=== PATIENT | female | born 1995 | race Caucasian/White ===

== ENCOUNTER 2018-07-16 09:31 | Emergency (ER) | payer OTHER ==
[2018-07-16 09:48] VITALS: BP 132/79
[2018-07-16] MEDS ORDERED: KETOROLAC TROMETHAMINE INJ/PF 30 MG/1 ML SDV IM ONE (10:01)
[2018-07-16] MEDS ORDERED: DICYCLOMINE HCL 20 MG TABLET PO ONE (10:02)
--- NOTE | 2018-07-16 10:26 | ER Document Report ---
ED GI/ - General Chief Complaint: Abdominal Pain Stated Complaint: ADOMINAL PAIN Time Seen by Provider: 07/16/18 10:01 Notes: Chief complaint: abdominal pain: History of complain:( obtained from----patient) 22 years old female presents today with abdominal pain for the last 3 days, not associated with any nausea vomiting diarrhea dysuria frequency or urgency. Denies any fever chills or other constitutional symptoms. Irregular bowel habit. Onset: 3 days ago Duration: Gradual Severity: Mild to moderate Quality: Crampy Context: Possible constipation Exacerbating factor and relieving factors: None REVIEW OF SYSTEMS: CONSTITUTIONAL : Denies fever, chills, or sweats. Denies recent illness. EENT: Denies eye, ear, throat, or mouth pain or symptoms. Denies nasal or sinus congestion or discharge. Denies throat, tongue, or mouth swelling or difficulty swallowing. CARDIOVASCULAR: Denies chest pain. Denies palpitations or racing or irregular heart beat. Denies ankle edema. RESPIRATORY: Denies cough, cold, or chest congestion. Denies shortness of breath, difficulty breathing, or wheezing. GASTROINTESTINAL: Denies distention. Denies nausea, vomiting, or diarrhea. Denies blood in vomitus, stools, or per rectum. Denies black, tarry stools. Denies constipation. GENITOURINARY: Denies difficulty urinating, painful urination, burning, frequency, blood in urine, or discharge. FEMALE GENITOURINARY: Denies vaginal bleeding, heavy or abnormal periods, irregular periods. Denies vaginal discharge or odor. MUSCULOSKELETAL: Denies back or neck pain or stiffness. Denies joint pain or swelling. SKIN: Denies rash, lesions or sores. HEMATOLOGIC : Denies easy bruising or bleeding. LYMPHATIC: Denies swollen, enlarged glands. NEUROLOGICAL: Denies confusion or altered mental status. Denies passing out or loss of consciousness. Denies dizziness or lightheadedness. Denies headache. Denies weakness or paralysis or loss of use of either side. Denies problems with gait or speech. Denies sensory loss, numbness, or tingling. Denies seizures. PSYCHIATRIC: Denies anxiety or stress. Denies depression, suicidal ideation, or homicidal ideation. ALL OTHER SYSTEMS REVIEWED AND NEGATIVE. PHYSICAL EXAMINATION: GENERAL: Well-appearing, well-nourished and in no acute distress. HEAD: Atraumatic, normocephalic. EYES: Pupils equal round and reactive to light, extraocular movements intact, conjunctiva are normal. ENT: Nares patent, oropharynx clear without exudates. Moist mucous membranes. NECK: Normal range of motion, supple without lymphadenopathy LUNGS: Breath sounds clear to auscultation bilaterally and equal. No wheezes rales or rhonchi. HEART: Regular rate and rhythm without murmurs ABDOMEN: Soft, tender over the right lower quadrant right upper quadrant left lower quadrant., nondistended abdomen. No guarding, no rebound. No masses appreciated. Female : deferred Musculoskeletal: Normal range of motion, no pitting or edema. No cyanosis. NEUROLOGICAL: Cranial nerves grossly intact. Normal speech, normal gait. Normal sensory, motor exams PSYCH: Normal mood, normal affect. SKIN: Warm, Dry, normal turgor, no rashes or lesions noted. Dictation was performed using [employer] voice recognition software TRAVEL OUTSIDE OF THE [place] IN LAST 30 DAYS: No - HPI Notes: 07/16/18 12:50 Dictated - Related Data Allergies/Adverse Reactions: No Known Allergies Allergy (Verified 07/16/18 09:34) Past Medical History - Social History Smoking Status: Never Smoker Frequency of alcohol use: Rare Drug Abuse: None Family History: Reviewed & Not Pertinent Patient has suicidal ideation: No Patient has homicidal ideation: No Neurological Medical History: Reports: Hx Migraine Renal/ Medical History: Denies: Hx Peritoneal Dialysis Past Surgical History: Reports: Hx Oral Surgery - wisdom teeth Review of Systems - Review of Systems Notes: Dictated Physical Exam - Vital signs Vitals: Temp Pulse Resp BP Pulse Ox 98.6 F 72 16 132/79 H 98 07/16/18 09:46 07/16/18 09:46 07/16/18 09:46 07/16/18 09:46 07/16/18 09:46 - Notes Notes: Dictated Course - Vital Signs Vital signs: Temp Pulse Resp BP Pulse Ox 98.6 F 72 16 132/79 H 98 07/16/18 09:46 07/16/18 09:46 07/16/18 09:46 07/16/18 09:46 07/16/18 09:46 - Laboratory Result Diagrams: 07/16/18 10:10 07/16/18 10:10 - Diagnostic Test Radiology reviewed: Image reviewed - Shows large amount of fecal material, Reports reviewed Discharge - Discharge Clinical Impression: Constipation by delayed colonic transit Abdominal pain Qualifiers: Abdominal location: generalized Qualified Code(s): R10.84 - Generalized abdominal pain Condition: Fair Disposition: HOME, SELF-CARE Prescriptions: Dicyclomine HCl [Bentyl 20 mg Tablet] 20 mg PO QID #40 tablet Lactulose 20 gm PO BID #120 ml
[2018-07-16 10:46] LABS: ABSOLUTE EOSINOPHILS # (AUTO) 0.1 10^3/uL (0.0-0.6); ABSOLUTE LYMPHOCYTES (AUTO) 1.7 10^3/uL (0.5-4.7); ABSOLUTE MONOCYTES (AUTO) 0.7 10^3/uL (0.1-1.4); ABSOLUTE NEUT (AUTO) 5.8 10^3/uL (1.7-8.2); BASOPHILS % (AUTO) 0.5 % (0-2); EOSINOPHILS % (AUTO) 1.1 % (0-6); HEMATOCRIT 42.2 % (36.0-47.0); HEMOGLOBIN 14.7 g/dL (12.0-15.5); LYMPHOCYTES % (AUTO) 20.2 % (13-45); MEAN CORPUSCULAR HGB CONC 34.9 g/dL (32.0-36.0); MEAN CORPUSCULAR VOLUME 86 fl (80-97); MONOCYTES % (AUTO) 8.8 % (3-13); PLATELET COUNT 315 10^3/uL (150-450); RED CELL DISTRIBUTION WIDTH 12.9 % (11.5-14.0); SEGMENTED NEUTROPHILS % (AUTO) 69.4 % (42-78); TOTAL CELLS COUNTED % (AUTO) 100 %; WHITE BLOOD COUNT 8.3 10^3/uL (4.0-10.5)
[2018-07-16 11:12] LABS: ALANINE AMINOTRANSFERASE 38 U/L (9-52); ALBUMIN 4.7 g/dL (3.5-5.0); ALKALINE PHOSPHATASE 55 U/L (38-126); ANION GAP 11 (5-19); ASPARTATE AMINO TRANSFERASE 21 U/L (14-36); BILIRUBIN,DIRECT 0.2 mg/dL (0.0-0.4); BILIRUBIN,TOTAL 0.8 mg/dL (0.2-1.3); BLOOD UREA NITROGEN 10 mg/dL (7-20); CALCIUM 9.9 mg/dL (8.4-10.2); CARBON DIOXIDE 28 mmol/L (22-30); CHLORIDE 104 mmol/L (98-107); GLUCOSE 107 mg/dL (75-110); LIPASE 76.1 U/L (23-300); POTASSIUM 4.7 mmol/L (3.6-5.0); SODIUM 142.5 mmol/L (137-145); TOTAL PROTEIN 7.7 g/dL (6.3-8.2)
[2018-07-16 11:58] LABS: APPEARANCE,URINE SLIGHTLY-CLOUDY; BILIRUBIN,URINE NEGATIVE (NEGATIVE); COLOR,URINE YELLOW; GLUCOSE, URINE NEGATIVE (NEGATIVE); KETONES,URINE NEGATIVE (NEGATIVE); LEUKOCYTE ESTERASE,URINE NEGATIVE (NEGATIVE); NITRITE,URINE NEGATIVE (NEGATIVE); PROTEIN,URINE NEGATIVE (NEGATIVE); URINE SPECIFIC GRAVITY 1.012; UROBILINOGEN,URINE NEGATIVE mg/dL (<2.0)
--- NOTE | 2018-07-16 12:21 | RADIOLOGY REPORT (SQ) ---
EXAM DESCRIPTION: ACUTE ABDOMEN SERIES COMPLETED DATE/TIME: 07/16/2018 11:51 am REASON FOR STUDY: Acute abdominal pain acute abdominal pain COMPARISON: None. NUMBER OF VIEWS: Three views. TECHNIQUE: Frontal chest, supine abdomen and upright/decubitus abdomen radiographic images acquired. LIMITATIONS: None. FINDINGS: CHEST: Lungs clear of infiltrates. FREE AIR: None. No abnormal gas collections. BOWEL GAS PATTERN: Nonobstructive pattern. No dilated loops or air fluid levels. CALCIFICATIONS: No suspicious calcifications. HARDWARE: None in the abdomen. SOFT TISSUES: No gross mass or suggestion of organomegaly. BONES: No acute fracture. No worrisome bone lesions. OTHER: IUD overlying the uterus. IMPRESSION: NO RADIOGRAPHIC EVIDENCE FOR ACUTE ABDOMINAL DISEASE. TECHNICAL DOCUMENTATION: JOB ID: [id number] [employer]- All Rights Reserved Reading location - IP/workstation name: [email or web address]
== END 2018-07-16 12:49 | disposition home or self-care (01) ==
LOC: ER 09:31
DX: K59.01 Slow transit constipation (principal); R10.84 Generalized abdominal pain
CPT/HCPCS: 99284; 96372; 36415; 83690; 85025; 81025; 80053; 81001; 74022; J3490; J1885

== ENCOUNTER 2018-12-08 21:33 | Emergency (ER) | payer OTHER ==
[2018-12-08 22:14] VITALS: BP 133/71
== END 2018-12-08 23:30 | disposition left against medical advice (07) ==
LOC: ER 21:33
DX: Z53.21 Procedure and treatment not carried out due to patient leaving prior to being seen by health care provider (principal)

== ENCOUNTER → 2019-01-22 | Outpatient (CLI) | payer OTHER ==
--- NOTE | 2019-01-22 13:16 | RADIOLOGY REPORT (SQ) ---
EXAM DESCRIPTION: FOOT RIGHT COMPLETE COMPLETED DATE/TIME: 01/22/2019 12:09 pm REASON FOR STUDY: RT FOOT PAIN M79.671 PAIN IN RIGHT FOOT COMPARISON: None. NUMBER OF VIEWS: Three views. TECHNIQUE: AP, lateral and oblique radiographic images acquired of the right foot. LIMITATIONS: None. FINDINGS: MINERALIZATION: Normal. BONES: No acute fracture or dislocation. No worrisome bone lesions. JOINTS: No effusions. SOFT TISSUES: No soft tissue swelling. No foreign body. OTHER: No other significant finding. IMPRESSION: NEGATIVE STUDY OF THE RIGHT FOOT. NO RADIOGRAPHIC EVIDENCE OF ACUTE INJURY. TECHNICAL DOCUMENTATION: JOB ID: [id number] [employer]- All Rights Reserved Reading location - IP/workstation name: [email or web address]
== END ==
LOC: OD 11:55
PROVIDERS: ATTEND Nurse Practitioner Acute Care
DX: M79.671 Pain in right foot (principal)

== ENCOUNTER 2019-03-30 23:48 | Emergency (ER) | payer OTHER ==
[2019-03-31] MEDS ORDERED: HYDROCODONE/ACETAMINOPHEN 5-325 MG TABLET PO ONE (02:48)
--- NOTE | 2019-03-31 02:52 | ER Document Report ---
HPI - HPI Time Seen by Provider: 03/31/19 02:40 Pain Level: 5 Context: Patient is a 23-year-old female history of migraines presents to the emergency department with chief complaint of right knee pain. 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 Patient states that initially she did have pain. Patient states she had the next day off when she rested, elevated and iced her right knee. Patient states she did ambulate but with a limp. Patient states she did go to work yesterday and when lifting a child heard a click around her kneecap. Patient states that she does not believe her kneecap dislocated but since then has had significant right knee pain. Patient states she last took ibuprofen around 11 PM last night with minimal relief. Patient states her position of comfort is when her leg is straight. Patient states the pain is worse with ambulation or movement of the right knee. - REPRODUCTIVE Reproductive: DENIES: : Past Medical History - General Information source: Patient - Social History Smoking Status: Never Smoker Cigarette use (# per day): No Chew tobacco use (# tins/day): No Frequency of alcohol use: None Drug Abuse: None Lives with: Spouse/Significant other Family History: Reviewed & Not Pertinent - Past Medical History Cardiac Medical History: Reports: None Pulmonary Medical History: Reports: None EENT Medical History: Reports: None Neurological Medical History: Reports: Hx Migraine Endocrine Medical History: Reports: None Renal/ Medical History: Reports: None. Denies: Hx Peritoneal Dialysis Malignancy Medical History: Reports: None GI Medical History: Reports: None Musculoskeletal Medical History: Reports None Skin Medical History: Reports None Psychiatric Medical History: Reports: None Traumatic Medical History: Reports: None Infectious Medical History: Reports: None Past Surgical History: Reports: Hx Oral Surgery - wisdom teeth Vertical Provider Document - CONSTITUTIONAL Agree With Documented VS: Yes Exam Limitations: No Limitations General Appearance: Mild Distress - INFECTION CONTROL TRAVEL OUTSIDE OF THE [place] IN LAST 30 DAYS: No - HEENT HEENT: Atraumatic, Normal ENT Exam - NECK Neck: Normal Inspection - RESPIRATORY Respiratory: Breath Sounds Normal, No Respiratory Distress - CARDIOVASCULAR Cardiovascular: Regular Rate, Regular Rhythm - GI/ABDOMEN Gastrointestinal: Abdomen Soft, Abdomen Non-Tender - BACK Back: Normal Inspection - MUSCULOSKELETAL/EXTREMETIES Notes: Mild edema and ecchymosis noted to the patella on the right leg. Patient has limited range of motion to the knee joint as this does cause pain. Patient is able to move the knee joint with passive range of motion. There is no lateral, posterior or medial pain to palpation. Patient has a strong +2 dorsalis pedis, posterior tibial and popliteal pulse with palpation. Patient's toes are warm to touch. There is no obvious deformity. - NEURO Level of Consciousness: Awake, Alert, Appropriate - DERM Integumentary: Warm, Dry, No Rash Course - Vital Signs Vital signs: Temp Pulse Resp BP Pulse Ox 97.8 F 87 26 H 130/82 H 98 03/31/19 00:04 03/31/19 00:04 03/31/19 00:04 03/31/19 00:04 03/31/19 00:04 Procedures - Immobilization Right Leg Pre-Proc Neuro Vasc Exam: Normal Immobilizer type: Knee immobilizer Performed by: PCT Post-Proc Neuro Vasc Exam: Normal, Unchanged from pre-exam Alignment checked and good: Yes Discharge - Discharge Clinical Impression: Right knee injury Qualifiers: Encounter type: initial encounter Qualified Code(s): S89.91XA - Unspecified injury of right lower leg, initial encounter Condition: Stable Disposition: HOME, SELF-CARE Additional Instructions: You are seen in the emergency department with a chief complaint of right knee pain. We did obtain an x-ray which showed no acute fracture dislocation. There is no large amount of soft tissue swelling. We have placed you in a knee immobilizer and given you crutches. Please use this for comfort and follow-up with orthopedics as he may have an injury that may require further management such as an MRI. Take Tylenol or ibuprofen as needed for pain. Please rest over the next few days and use ice over the knee. Return to the emergency department for any worsening signs or symptoms. Sprained Knee Your sprained knee results from a stretching or tearing of the ligaments which support the joint. This often results from a bending stress -- such as a twisting fall while skiing or a "clip" while playing football. The ligaments will require time and protection to heal adequately. A knee sprain can be quite serious, and should be taken seriously. The usual treatment is splinting of the knee, ice packs, and elevation. You shouldn't walk on the leg if weightbearing is painful. Unless the sprain is obviously a minor one, follow-up exam is very important. The degree of ligament damage often cannot be fully assessed at first due to muscle spasm and pain. Your treatment plan may change based on the physician's findings during your follow-up examination. Call the doctor at once if there is severe swelling, increasing pain, n umbness, or other alarming symptoms. Forms: Return to Work Referrals: RONAK OLMOS NP [NURSE PRACTITIONER] - Follow up as needed
--- NOTE | 2019-03-31 03:55 | RADIOLOGY REPORT (SQ) ---
EXAM DESCRIPTION: XR KNEE 1-2 VIEWS COMPLETED DATE/TME: 03/30/2019 00:00 CLINICAL HISTORY: 23 years, Female, injury COMPARISON: None. NUMBER OF VIEWS: Two TECHNIQUE: AP and lateral views of the right knee LIMITATIONS: None. FINDINGS: No acute fracture or dislocation. The joint spaces are preserved. No large soft tissue swelling. No radiopaque foreign body. IMPRESSION: No acute fracture or dislocation copyright 2010 [employer]- All Rights Reserved
[2019-03-31 05:21] VITALS: BP 128/82
== END 2019-03-31 05:08 | disposition home or self-care (01) ==
LOC: ER 23:48
DX: S89.91XA Unspecified injury of right lower leg, initial encounter (principal); W22.03XA Walked into furniture, initial encounter; Y99.0 Civilian activity done for income or pay
CPT/HCPCS: 99283; 73560; L1830